=== PATIENT | female | born 2000 | race Asian ===

== ENCOUNTER → 2024-02-06 10:28 | Outpatient (CLI) | payer OTHER, SELFPAY ==
--- NOTE | 2024-02-06 10:32 | DI.RAD.S_ITS ---
PROCEDURE: XR WRIST LT MIN 3V INDICATIONS: Left forearm pain TECHNIQUE: 4 views of the wrist were acquired. COMPARISON: None. FINDINGS: Bones: No fractures or dislocations. No suspicious bony lesions. Soft tissues: No suspicious soft tissue calcifications. IMPRESSION: No acute bony abnormality. If pain persists, followup imaging in 5-7 days is recommended to exclude occult fracture. Dictated by: Malissa Earl M.D. on 02/07/2024 at 8:04 Approved by: Malissa Earl M.D. on 02/07/2024 at 8:05
--- NOTE | 2024-02-06 10:32 | DI.RAD.S_ITS ---
PROCEDURE: XR FOREARM LT 2V INDICATIONS: Left forearm pain TECHNIQUE: 2 views of the forearm were acquired. COMPARISON: None. FINDINGS: Bones: No fractures or dislocations. No suspicious bony lesions. Soft tissues: No suspicious soft tissue calcifications or masses. IMPRESSION: No acute bony abnormality. If pain persists, followup imaging in 5-7 days is recommended to exclude occult fracture. Dictated by: Malissa Earl M.D. on 02/07/2024 at 8:05 Approved by: Malissa Earl M.D. on 02/07/2024 at 8:06
== END ==
PROVIDERS: Referring Provider Nurse Practitioner Family; Visit Provider Nurse Practitioner Family
DX: M79.602 Pain in left arm (principal)
CPT/HCPCS: 73090; 73110

== ENCOUNTER 2024-03-09 00:15 | Emergency (ER) | payer OTHER, SELFPAY ==
[2024-03-09] VITALS (7 sets, daily range): BP systolic 102–113; BP diastolic 55–79; PULSE 64–95; RESP 16–18; TEMP 36.2; O2SAT 97–100; BMI 22.6
--- NOTE | 2024-03-09 00:30 | DI.CT.S_ITS ---
PROCEDURE: CT HEAD/BRAIN WO CON INDICATIONS: hit head with symptoms on a concussion and neck pain TECHNIQUE: Noncontrast 4.5 mm thick angled axial sections acquired from the foramen magnum to the vertex, with coronal and sagittal reformats. For radiation dose reduction, the following was used: automated exposure control, adjustment of mA and/or kV according to patient size. COMPARISON: None. FINDINGS: Image quality: Diagnostic. CSF spaces: Basal cisterns are patent. No extra-axial fluid collections. Ventricles are normal in size and shape. Brain: No midline shift. No intracranial masses or hemorrhage. Caldwell-white matter interface is normal. Skull and face: There is moderate right periorbital soft tissue contusion. There is age-indeterminate fracture of the inferior wall of the right orbit with herniation of orbital fat into the maxillary sinus. No evidence to suggest involvement of the extraocular muscle. Otherwise, no other fractures identified in the imaged facial bones or calvarium. Sinuses: Visualized sinuses and mastoids are clear. IMPRESSION: CT head without acute intracranial abnormalities. Right periorbital soft tissue contusion with age-indeterminate fracture of the inferior right orbital wall with herniation of orbital fat into the right maxillary sinus. No findings to suggest herniation of the extraocular muscle. Consider further evaluation with dedicated facial bone CT. Dictated by: Loy Florez M.D. on 03/09/2024 at 1:07 Approved by: Loy Florez M.D. on 03/09/2024 at 1:11
--- NOTE | 2024-03-09 00:30 | DI.CT.S_ITS ---
PROCEDURE: CT CERVICAL SPINE WO CON INDICATIONS: hit head with symptoms on a concussion and neck pain TECHNIQUE: Noncontrast 3 mm thick sections acquired from the skull base to the T4 level. Sagittal and coronal reformats were then constructed. For radiation dose reduction, the following was used: automated exposure control, adjustment of mA and/or kV according to patient size. COMPARISON: None. FINDINGS: Image quality: Diagnostic Bones: No acute fractures or dislocations. No acute compression fractures of the vertebral bodies. Craniocervical junction is intact. C1-C2 relationship is preserved. Visualized superior ribs are intact. Soft tissues: Prevertebral soft tissues are normal in thickness. No paravertebral hematomas. No apical pneumothoraces. IMPRESSION: No displaced fracture or traumatic subluxation. Dictated by: Loy Florez M.D. on 03/09/2024 at 1:06 Approved by: Loy Florez M.D. on 03/09/2024 at 1:07
[2024-03-09] MEDS: ONDANSETRON 4 MG/2 ML INJ IV (00:41)
[2024-03-09] MEDS: KETOROLAC 30 MG/ML VIAL 15 MG IV (00:42)
--- NOTE | 2024-03-09 04:44 | DI.CT.S_ITS ---
PROCEDURE: CT FACIAL BONES WO CON INDICATIONS: fall, ?orbital fx on Head CT TECHNIQUE: Noncontrast 2.5 mm thick axial images acquired from the mandible through the frontal sinuses, with coronal and sagittal reformatting. For radiation dose reduction, the following was used: automated exposure control, adjustment of mA and/or kV according to patient size. COMPARISON: [facility], CT, CT HEAD/BRAIN WO CON, 03/09/2024, 0:44. FINDINGS: Image quality: Excellent. Bones and teeth: Comminuted right inferior orbital fracture. There is no definitive rectus muscle entrapment. Prominent fat herniation is present. Sinus vickers show no fracture or deformity. Nasal bones and septum are intact. Visualized portions of the mandible demonstrate no fractures or subluxation. Zygomatic arches are intact. Pterygoid plates are intact. Visualized portions of the skull base and auditory canals are intact. Sinuses: Paranasal sinuses are aerated, without fluid levels, mucosal thickening, or mucoceles. Mastoid air cells are aerated. Soft tissues: Right periorbital edema is present. No enlarged lymph nodes. No soft tissue lacerations or debris. Vascular: Visualized vascular structures appear normal in the absence of contrast. Bony vascular foramina and canals are intact. IMPRESSION: Comminuted right inferior orbital fracture with prominent fat herniation. No rectus muscle entrapment. The above findings were discussed with Dr. Cheri Dubois on 03/09/2024 at 9:30 a.m.. Dictated by: Caterina Ramon M.D. on 03/09/2024 at 9:35 Approved by: Caterina Ramon M.D. on 03/09/2024 at 10:05
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
--- NOTE | 2024-03-09 16:19 | PC.NURSE ---
This RN received call from Dr. Austen Mccullough at [facility] asking for CT scans from today to be sent to [facility]. This RN called Keeley from CT to ask her to push images from face, head and c-spine CT to [facility].
== END 2024-03-09 06:54 | disposition home or self-care (01) ==
PROVIDERS: Emergency Provider Emergency Medicine
DX: S06.0X0A Concussion without loss of consciousness, initial encounter (principal); S00.11XA Contusion of right eyelid and periocular area, initial encounter; W18.00XA Striking against unspecified object with subsequent fall, initial encounter
CPT/HCPCS: 70450; 70486; 72125; 96374; 96375; 99283; 99284; J1885; J2405